=== PATIENT | male | born 1980 | race Caucasian/White ===

== ENCOUNTER 2019-01-20 07:33 | Emergency (ER) | payer OTHER ==
[~2019-01-20] VITALS: Ht 180.3 cm; Wt 90.7 kg
[2019-01-20 07:45] VITALS: BP 136/88
[2019-01-20] MEDS ORDERED: HYDR-2155 PO (08:05)
--- NOTE | 2019-01-20 08:07 | PHYS DOC ---
Past History Past Medical History: No Pertinent History Past Surgical History: No Surgical History Alcohol Use: None Drug Use: None Adult General Chief Complaint Chief Complaint: LOWER EXT PAIN HPI HPI Patient is a 38 year old male who presents with right leg pain. He was at the end of a two mile run this morning when he felt a pop in his right calf. He then felt a sharp pain that reverberated. His leg felt tight with a pulsing sensation. He was able to limp in the last 200 meters of the run. He can bear weight on his leg but has to walk flat footed. His pain is worse with movement and walking and reaches a 7/10. He denies swelling. He came straight to the ED. He does report that for the past month he has had an achy pain in his right calf. Review of Systems Review of Systems Constitutional: Denies fever or chills Eyes: Denies redness or eye pain HENT: Denies nasal congestion or sore throat Respiratory: Denies cough or shortness of breath Cardiovascular: Denies chest pain or palpitations GI: Denies abdominal pain, nausea, or vomiting : Denies dysuria or hematuria Musculoskeletal: Denies back pain reports right leg pain Integument: Denies rash or skin lesions Neurologic: Denies headache, focal weakness or sensory changes Complete systems were reviewed and found to be within normal limits, except as documented in this note. Allergies Allergies Allergies Coded Allergies Type Severity Reaction Last Updated Verified codeine Allergy Unknown 01/20/19 Yes Physical Exam Physical Exam Constitutional: Well developed, well nourished, no acute distress, non-toxic appearance HENT: Normocephalic, atraumatic Eyes: Conjunctiva normal, no discharge Neck: Normal range of motion, no tenderness, supple Cardiovascular: Heart rate normal, regular rhythm Lungs & Thorax: Bilateral breath sounds clear to auscultation, no wheezing Skin: Warm, dry, no erythema, no rash Extremities: ROM intact, no edema, muscle strength 5/5, tenderness to palpation in right calf, Achilles tendon intact without bogginess. Neurologic: Alert and oriented X 3, no focal deficits noted Psychologic: Affect normal, judgement normal Current Patient Data Vital Signs Vital Signs Date Time Temp Pulse Resp B/P (MAP) Pulse Ox O2 Delivery O2 Flow Rate FiO2 01/20/19 07:45 98.2 86 16 97 Room Air EKG EKG [] Radiology/Procedures Radiology/Procedures PROCEDURE: TIBIA FIBULA RIGHT Indication: Pain in calf TECHNIQUE: 2 views of the right tibia and fibula COMPARISON: None Findings/ impression: No acute fracture or dislocation. No soft tissue abnormality. Electronically signed by: Nikita Mccullough DO (01/20/2019 8:13 AM) [facility] [] Course & Med Decision Making Course & Med Decision Making Pertinent Imaging studies reviewed. (See chart for details) Mr. Durant is a 38 year old male who presents for acute onset right leg pain. He was at the end of a two mile run when he felt a pop in his right calf. He is able to bear weight, but must walk flat footed. On physical exam his knee and ankle joint were stable. He has tenderness to palpation in his right calf without edema. Tibia/Fibula X-ray showed no acute fracture or dislocation. He is given crutches, an berta bandage, and pain medication. He is educated about RICE. He should follow up with orthopedic surgery for further evaluation. Patient stable for discharge with outpatient follow-up with PCP/Orthopedic referral provided. Discussed findings and plan with patient, who acknowledges understanding and agreement. Dragon Disclaimer Dragon Disclaimer This electronic medical record was generated, in whole or in part, using a voice recognition dictation system. Splinting Splinting : Location: Right leg Pre-Made Type: BERTA bandage Pre-Proc Neuro Vasc Exam: normal Post-Proc Neuro Vasc Exam: normal, unchanged from pre-exam Departure Departure: Impression: Primary Impression: Strain of calf muscle Disposition: HOME, SELF-CARE Condition: STABLE Referrals: PCP,NO (PCP) SHAW WOODWARD MD Patient Instructions: Crutch Use, [id number], Muscle Strain, [id number], RICE - Routine Care for Injuries, [id number] Scripts Hydrocodone Bit/Acetaminophen (HYDROCODONE-APAP 5-325 ) 1 Each Tablet 0.5-1 TAB PO PRN Q6HRS PRN for PAIN, #10 TAB 0 Refills Prov: APARNA RUSSO DO 01/20/19 Problem Qualifiers Primary Impression: Strain of calf muscle Encounter type: initial encounter Laterality: right Qualified Codes: S86.811A - Strain of other muscle(s) and tendon(s) at lower leg level, right leg, initial encounter APARNA RUSSO DO Jan 20, 2019 08:07
--- NOTE | 2019-01-20 08:16 | RAD ---
Indication: Pain in calf TECHNIQUE: 2 views of the right tibia and fibula COMPARISON: None Findings/ impression: No acute fracture or dislocation. No soft tissue abnormality. Electronically signed by: Nikita Mccullough DO (01/20/2019 8:13 AM) [facility]
== END 2019-01-20 08:17 | disposition home or self-care (01) ==
LOC: ER 07:33
DX: S86.811A Strain of other muscle(s) and tendon(s) at lower leg level, right leg, initial encounter (principal); Z88.5 Allergy status to narcotic agent; X50.9XXA Other and unspecified overexertion or strenuous movements or postures, initial encounter; Y93.02 Activity, running; Y92.89 Other specified places as the place of occurrence of the external cause; Y99.8 Other external cause status
CPT/HCPCS: 73590; 99284